=== PATIENT | female | born 1950 | race Caucasian/White ===

== ENCOUNTER 2016-08-29 15:50 | Emergency (ER) | payer OTHER ==
--- NOTE | 2016-08-29 16:02 | EDPHY ---
H & P HPI/ROS: HPI CHIEF COMPLAINT: Allergic reaction HISTORY OF PRESENT ILLNESS: This patient very pleasant 66-year-old female she has significant past medical history for hypertension, hyperlipidemia, MAC, takes inhaled amikacin, azithromycin presents to the emergency room with an allergic reaction. 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 Patient states she has been on inhaled amikacin for prolonged period of time as well as azithromycin, she is unclear exactly what caused her allergic reaction today. She states she laid down to take a nap she began feeling short of breath felt as if her throat was closing off and tongue was swelling. 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 Call 911 EMS arrived. They gave her IM epinephrine 0.3 mg as well as IM Benadryl 50 mg they established an IV and gave her IV Solu-Medrol. She has since doing much better. She denies chest pain or shortness of breath denies further tongue swelling or trouble swallowing. Denies nausea vomiting or diarrhea denies abdominal cramping. 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 Exam Constitutional triage nursing summary reviewed, vital signs reviewed, awake/ alert. Eyes normal conjunctivae and sclera, EOMI, PERRLA. HENT oropharynx: uvula midline, no soft palate swelling, no trismus, no stridor, asymmetrical tongue swelling mild left greater than right, normal inspection, atraumatic, moist mucus membranes, no epistaxis, neck supple/ no meningismus, no raccoon eyes. Respiratory no wheezing, clear to auscultation bilaterally, normal breath sounds, no respiratory distress Cardiovascular rate normal, regular rhythm, no murmur, no edema, distal pulses normal. Gastrointestinal soft, non-tender, no rebound, no guarding, normal bowel sounds, no distension, no pulsatile mass. Genitourinary no CVA tenderness. Musculoskeletal no midline vertebral tenderness, full range of motion, no calf swelling, no tenderness of extremities, no meningismus, good pulses, neurovascularly intact. Skin pink, warm, & dry, no rash, skin atraumatic. Neurologic awake, alert and oriented x 3, AAOx3, moves all 4 extremities equally, motor intact, sensory intact, CN II-XII intact, normal cerebellar, normal vision, normal speech. Psychiatric normal mood/affect. Heme/Lymph/Immune no lymphadenopathy. Differential Diagnosis: Includes but is not limited to in a particular order allergic reaction, anaphylaxis, angioedema Medical Decision Making: Patient was given IM epinephrine, Benadryl and Solu- Medrol prior to arrival doing much better now. Will monitor her closely for further signs of allergic reaction, she will have an IV fluid bolus given check basic blood work. Monitor on vp compliance and pulse ox. Re-evaluation: Spoke with Dr. Gaytan: ID at [facility]: Recommends holding her medications until follow up with ID for sensitivities about allergic reaction. 1706: updated patient about observing her for 4 hours. Spoke with her and her at length they understand to hold her antibiotics until she has followed up with her infectious disease doctor. Is possible 1 of her antibiotics causes reaction or it is possible she had a food ingestion or environmental reaction. It is unclear at this time. 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 She could go home with prednisone for 3 days, Benadryl for 3 days as well as epinephrine pen. She does understand at any point if she has a return of allergic reaction symptoms trouble breathing, trouble swallowing , tongue swelling rash nausea vomiting she needs return to the emergency room. 1855: re-examination at this time patient has had no progression of allergic reaction. Specifically she has no trouble swallowing, her tongue swelling that was asymmetrical left-sided mild arrival has resolved. No nausea vomiting or diarrhea no abdominal cramps, no rash. Patient feels comfortable going home. She already got her prescriptions filled Benadryl, prednisone, epinephrine pen. She understands if she has rebound allergic reaction or worsening symptoms tonight to inject epinephrine, call 911 and go to an emergency room. She understands this. She understands to follow up with her infectious disease doctor. Source: Patient, EMS Constitutional: Initial Vital Signs Temperature (C) 36.3 C 08/29/16 16:05 Heart Rate 67 08/29/16 16:05 Respiratory Rate 20 08/29/16 16:05 Blood Pressure 155/82 H 08/29/16 16:05 O2 Sat (%) 97 08/29/16 16:05 O2 Delivery Mode Room Air Allergies/Adverse Reactions: levofloxacin [From Levaquin] Allergy (Verified 08/29/16 16:07) Penicillins Allergy (Verified 08/29/16 16:07) Home Medications: Medication Instructions Recorded AMIKACIN SULFATE/PF 08/29/16 Azithromycin 08/29/16 EPINEPHRINE [EPIPEN] 0.3 mg IM ONCE #2 syr 08/29/16 diphenhydrAMINE [Benadryl 25 MG 25 mg PO BID #6 tab 08/29/16 (*)] predniSONE 60 mg PO DAILY #9 tab 08/29/16 Medical Decision Making - Data Points Laboratory Results: Laboratory Results 08/29/16 15:55 08/29/16 15:55 08/29/16 08/29/16 15:55 15:55 WBC 9.13 10^3/uL 10^3/uL (3.80-9.50) RBC 5.03 10^6/uL 10^6/uL (4.18-5.33) Hgb 15.6 g/dL g/dL (12.6-16.3) Hct 47.5 % H % (38.0-47.0) MCV 94.4 fL fL (81.5-99.8) MCH 31.0 pg pg (27.9-34.1) MCHC 32.8 g/dL g/dL (32.4-36.7) RDW 13.0 % % (11.5-15.2) Plt Count 290 10^3/uL 10^3/uL (150-400) MPV 9.1 fL fL (8.7-11.7) Neut % (Auto) 45.9 % % (39.3-74.2) Lymph % (Auto) 41.6 % % (15.0-45.0) [place] % (Auto) 10.2 % % (4.5-13.0) Eos % (Auto) 1.6 % % (0.6-7.6) Baso % (Auto) 0.4 % % (0.3-1.7) Nucleat RBC Rel Count 0.0 % % (0.0-0.2) Absolute Neuts (auto) 4.18 10^3/uL 10^3/uL (1.70-6.50) Absolute Lymphs (auto) 3.80 10^3/uL H 10^3/uL (1.00-3.00) Absolute Monos (auto) 0.93 10^3/uL H 10^3/uL (0.30-0.80) Absolute Eos (auto) 0.15 10^3/uL 10^3/uL (0.03-0.40) Absolute Basos (auto) 0.04 10^3/uL 10^3/uL (0.02-0.10) Absolute Nucleated RBC 0.00 10^3/uL 10^3/uL (0-0.01) Immature Gran % 0.3 % % (0.0-1.1) Immature Gran # 0.03 10^3/uL 10^3/uL (0.00-0.10) Sodium 141 mEq/L mEq/L (134-144) Potassium 4.5 mEq/L mEq/L (3.5-5.2) Chloride 102 mEq/L mEq/L (97-110) Carbon Dioxide 24 mEq/l mEq/l (22-31) Anion Gap 15 mEq/L mEq/L (8-16) BUN 22 mg/dL mg/dL (7-23) Creatinine 1.2 mg/dL H mg/dL (0.6-1.0) Estimated GFR 45 Glucose 101 mg/dL H mg/dL (70-100) Calcium 9.9 mg/dL mg/dL (8.5-10.4) Medications Given: Discontinued Medications Sodium Chloride (Ns) 1,000 mls @ 0 mls/hr IV ONCE ONE PRN Reason: Wide Open Stop: 08/29/16 16:06 Last Admin: 08/29/16 16:15 Dose: 1,000 mls Departure - Departure Disposition: Home, Routine, Self-Care Clinical Impression: Allergic reaction Qualifiers: Encounter type: initial encounter Qualified Code(s): T78.40XA - Allergy, unspecified, initial encounter Condition: Good Instructions: Anaphylaxis (ED), Allergies (ED) Additional Instructions: 1. please hold your antibiotics. 2. please follow up with her infectious disease doctor [facility]. Please call their for an appointment. 3. take Benadryl and prednisone for the next 3 days. You have also prescribed an epinephrine pen. Referrals: Patient,NotPresent [Unknown] - As per Instructions Prescriptions: diphenhydrAMINE [Benadryl 25 MG (*)] 25 mg PO BID #6 tab EPINEPHRINE [EPIPEN] 0.3 mg IM ONCE #2 syr predniSONE 60 mg PO DAILY #9 tab
[2016-08-29] MEDS ORDERED: NS 1,000 ML IV ONE (16:05)
[2016-08-29 16:06] VITALS: RESP 20
[2016-08-29 16:21] LABS: % IMMATURE GRANULYOCYTES 0.3 % (0.0-1.1); ABSOLUTE IMMATURE GRANULOCYTES 0.03 10^3/uL (0.00-0.10); ADD DIFF? NO; ADD MORPH? NO; ADD SCAN? NO; ATYPICAL LYMPHOCYTE FLAG 10 (0-99); FRAGMENT RBC FLAG 0 (0-99); HEMATOCRIT 47.5 % (38.0-47.0); HEMOGLOBIN 15.6 g/dL (12.6-16.3); LEFT SHIFT FLG 0 (0-99); LIPEMIA HEMOLYSIS FLAG 80 (0-99); MEAN CELL HEMOGLOBIN CONCENTR. 32.8 g/dL (32.4-36.7); MEAN CELL VOLUME 94.4 fL (81.5-99.8); MEAN PLATELET VOLUME 9.1 fL (8.7-11.7); PLATELET CLUMPS FLAG 0 (0-99); PLATELET COUNT 290 10^3/uL (150-400); RED BLOOD CELL COUNT 5.03 10^6/uL (4.18-5.33)
[2016-08-29 16:29] LABS: ANION GAP 15 mEq/L (8-16); CALCIUM 9.9 mg/dL (8.5-10.4); CARBON DIOXIDE 24 mEq/l (22-31); CHLORIDE 102 mEq/L (97-110); CREATININE 1.2 mg/dL (0.6-1.0); GLOMERULAR FILTRATION RATE 45; GLUCOSE 101 mg/dL (70-100); POTASSIUM 4.5 mEq/L (3.5-5.2); SODIUM 141 mEq/L (134-144)
[2016-08-29 19:24] VITALS: BP 129/78; PULSE 63; TEMP 97.7; O2SAT 95
== END 2016-08-29 19:25 | disposition home or self-care (01) ==
DX: T78.40XA Allergy, unspecified, initial encounter (principal); I10 Essential (primary) hypertension